=== PATIENT | female | born 2000 | race Caucasian/White ===

== ENCOUNTER 2020-12-11 21:55 | Emergency (ER) | payer BC ==
--- NOTE | 2020-12-11 22:40 | EDM.PDOC ---
ED HPI GENERAL MEDICAL PROBLEM - General Chief Complaint: Cardiovascular Problem Stated Complaint: HIGH HEART RATE Time Seen by Provider: 12/11/20 22:22 - History of Present Illness INITIAL COMMENTS - FREE TEXT/NARRATIVE: CHIEF COMPLAINT(S): I got an alert on my phone for high heart rate HISTORY OF PRESENT ILLNESS: This is a 20-year-old woman without any significant past medical history comes to the emergency department with a chief complaint of "I got an alert on my phone for a high heart rate." Patient states that prior to arrival she got an alert on her phone where her heart rate was greater than 100 for approximately 10 minutes. She states that she was sitting down at that time. She states that it was not decreasing so she decided to come to the emergency department. She states that this did happen in the past but it does not last long. She denies any chest pain, shortness of breath, diaphoresis, nausea or vomiting. She denies any fevers or chills, cough, runny nose or congestion. She denies any personal history of thyroid disease. She denies any family history of CAD, early onset at young age. She states that her mother does have thyroid issues. She states that she is currently on her period. She states that she does drink caffeine approximately 12 ounces of red bull per day. There are times where she does drink 3-4 red bowls. She denies any other symptoms. REVIEW OF SYSTEMS: Constitutional: Denies fever, chills. Eyes: Denies eye pain Ears, Nose, Mouth, & Throat: Denies earache Cardiovascular: Positive for increased heart rate denies chest pain Respiratory: Denies shortness of breath Gastrointestinal: Denies Nausea, vomiting, diarrhea, hematochezia. Genitourinary: Denies hematuria Skin:Denies a rash MSK: Denies joint pain Neurological: Denies blurred vision Psychiatric: Denies depression PAST MEDICAL HISTORY: As per history of present illness and as reviewed below otherwise noncontributory. SURGICAL HISTORY: As per history of present illness and as reviewed below otherwise noncontributory. LMP: Currently on her period SOCIAL HISTORY: As per history of present illness and as reviewed below otherwise noncontributory. FAMILY HISTORY: As per history of present illness and as reviewed below otherwise noncontributory. EXAMINATION OF ORGAN SYSTEMS/BODY AREAS: Constitutional: Blood pressure was 140/77, heart rate 106, respiratory rate 18 with an oxygen saturation 95% on room air. Temperature 37.0 General: Overall well-appearing young girl who is in no acute distress Psychiatric: Appropriate mood and affect. Eyes: No scleral icterus or conjunctival erythema ENMT: Moist mucous membranes. No pharyngeal erythema Cardiovascular: Regular, rate, and rhythm. No gallops, murmurs, or rubs. Bilateral upper extremity pulses symmetric and intact. No peripheral edema. No JVD. Respiratory: Lungs clear to auscultation bilaterally. No wheezes, rales, or rhonchi. Gastrointestinal: Soft, non-tender, non-distended. Normoactive bowel sounds Genitourinary: No suprapubic tenderness Musculoskeletal: Normal range of motion. Skin: No lesions or abrasions. Neurological: Alert, GCS 15 MEDICAL DECISION MAKING AND COURSE IN THE ED WITH INTERPRETATION/REVIEW OF DIAGNOSTIC STUDIES: This is a 20-year-old woman without any significant past medical history he does drink a significant out of caffeine who presents to the emergency department with a alert on her watch telling her that she had a high heart rate. Patient is currently tachycardic. We did obtain an EKG which did not reveal any acute signs of ischemia. There is no evidence of arrhythmia. The patient is currently asymptomatic. I do not believe any further work-up is indicated. I did discuss with her that we could place a Holter monitor on her and she can follow-up with cardiology given that this is happened in the past. She was amenable to this plan. Therefore given that is overnight she will come in tomorrow to have a Holter monitor placed. She will follow-up with cardiology in 14 days. She is to return for any new or worsening symptoms. She was amenable discharge at this time and had no further questions. Wells Criteria Clinical signs/symptoms of DVT: No (0) PE #1 Dx or equally likely: No (0) Heart Rate >100: Yes (1.5) Immobilization for 3 days or surgery in last month: No (0) Previously Dx PE or DVT: No (0) Hemoptysis: No (0) Malignancy w/ Tx within 6 months or palliative: No (0) Wells Score: 1.5 -> low risk no need for further workup DISPOSITION: The patient was discharged home in stable condition. The patient will follow up with cardiology in 14 days CONDITION: Fair PROCEDURES: None FINAL IMPRESSION(S)/DIAGNOSES: 1. Acute tachycardia likely secondary to caffeine use Kameron Riley M.D. - Related Data Allergies Allergy/AdvReac Type Severity Reaction Status Date / Time Sulfa (Sulfonamide Allergy Rash Verified 12/11/20 22:20 Antibiotics) Home Meds: Home Meds . [No Known Home Meds] 10/12/14 [History] Past Medical History - Past Health History Medical/Surgical History: Denies Medical/Surgical History HEENT History: Reports: None Cardiovascular History: Reports: None Respiratory History: Reports: None Gastrointestinal History: Reports: None Genitourinary History: Reports: None TAPPER BIT History: Reports: None Musculoskeletal History: Reports: None Neurological History: Reports: None Psychiatric History: Reports: None Endocrine/Metabolic History: Reports: None Hematologic History: Reports: None Immunologic History: Reports: None Oncologic (Cancer) History: Reports: None Dermatologic History: Reports: None - Infectious Disease History Infectious Disease History: Reports: None - Past Surgical History Head Surgeries/Procedures: Reports: None Social & Family History - Family History Family Medical History: No Pertinent Family History - Caffeine Use Caffeine Use: Reports: Energy Drinks ED ROS GENERAL - Review of Systems Review Of Systems: See Below ED EXAM, GENERAL - Physical Exam Exam: See Below Course - Vital Signs Last Recorded V/S: Last Vital Signs Temp 37.0 C 12/11/20 22:20 Pulse 88 12/11/20 23:14 Resp 18 12/11/20 23:14 BP 129/68 12/11/20 23:20 Pulse Ox 97 12/11/20 23:14 Departure - Departure Time of Disposition: 22:39 Disposition: Home, Self-Care 01 Condition: Fair Clinical Impression: Palpitations Instructions: Palpitations, [id number] Referrals: PCP,None [Primary Care Provider] - Arnol Bowie MD [Physician] - Forms: ED Department Discharge Additional Instructions: You were evaluated today on an emergent basis. At this time given that you were at the time of your alert on your watch we will place a Holter monitor on you and I would like you to follow-up with cardiology in 2 weeks. If you have any chest pain, shortness of breath, passing out I would like you to return to the emergency department. In addition your caffeine intake may be contributing to the tachycardia I do recommend that you limit your caffeine intake. [facility] [address] [place] [address] [facility] [address] [place] [address] The patient is informed of any results of their evaluation and diagnostic workup and all questions are answered. They are given discharge instructions and return precautions. The patient is stable for discharge. The patient states they understand and agree with the plan and that they will return if their symptoms get worse or if they have any new concerns. The following information is given to patients seen in the emergency department who are being discharged to home. This information is to outline your options for follow-up care. We provide all patients seen in our emergency department with a follow-up referral. The need for follow-up, as well as the timing and circumstances, are variable depending upon the specifics of your emergency department visit. If you don't have a primary care physician on staff, we will provide you with a referral. We always advise you to contact your personal physician following an emergency department visit to inform them of the circumstance of the visit and for follow-up with them and/or the need for any referrals to a consulting specialist. The emergency department will also refer you to a specialist when appropriate. This referral assures that you have the opportunity for follow-up care with a specialist. All of these measure are taken in an effort to provide you with optimal care, which includes your follow-up. Under all circumstances we always encourage you to contact your private physician who remains a resource for coordinating your care. When calling for follow-up care, please make the office aware that this follow-up is from your recent emergency room visit. If for any reason you are refused follow-up, please contact the [facility] Emergency Department at and asked to speak to the emergency department charge nurse. Sepsis Event Note (ED) - Evaluation Sepsis Screening Result: No Definite Risk
--- NOTE | 2020-12-12 06:01 | PCM.EKG ---
#1 Interpretation EKG Date: 12/11/20 Time: 22:23 Rhythm: NSR Rate (Beats/Min): 95 [place]: Normal P-Wave: Present QRS: Normal ST-T: Normal QT: Normal Comparison: NA - No Prior EKG EKG Interpretation Comments: SinuS Rhythm
== END 2020-12-11 23:21 | disposition home or self-care (01) ==
LOC: MW.ED 21:55
DX: R00.0 Tachycardia, unspecified (principal); R00.2 Palpitations; Z88.2 Allergy status to sulfonamides
CPT/HCPCS: 93005; 99283; 99284-25

== ENCOUNTER 2021-02-03 10:59 | Emergency (ER) | payer OTHER, BC ==
--- NOTE | 2021-02-03 11:25 | EDM.PDOC ---
ED HPI GENERAL MEDICAL PROBLEM - General Chief Complaint: Upper Extremity Injury/Pain Stated Complaint: DENISE LFT ARM Time Seen by Provider: 02/03/21 11:00 Source of Information: Reports: Patient History Limitations: Reports: No Limitations - History of Present Illness INITIAL COMMENTS - FREE TEXT/NARRATIVE: HISTORY AND PHYSICAL: History of present illness: Patient is a 20-year-old female resents emergency room today with concern of left elbow injury/pain that occurred just prior to travel to the emergency room. Patient states that she was at work walking through a warehouse when she had tripped on her feet and fell forward. Patient states that she caught herself with her hands and left elbow and was on her knees. Patient states that she did not hit her head or lose consciousness. Patient states that since the injury, she has not been able to move her left elbow due to pain. Patient denies any other associative injury or pain from the fall. Patient denies fever, chills, chest pain, shortness of breath, or cough. Denies headache, neck stiff ness, change in vision, syncope, or near syncope. Denies nausea, vomiting, abdominal pain, diarrhea, constipation, or dysuria. Has not noted any blood in urine or stool. Patient has been eating and drinking appropriately. Review of systems: As per history of present illness and below otherwise all systems reviewed and negative. Past medical history: As per history of present illness and as reviewed below otherwise noncontributory. Surgical history: As per history of present illness and as reviewed below otherwise noncontributory. Social history: See social history for further information Family history: As per history of present illness and as reviewed below otherwise noncontributory. Physical exam: General: Patient is alert, oriented, and in no acute distress. Patient sitting comfortably on exam table. Vitals stable and reviewed by me. HEENT: Atraumatic, normocephalic, pupils equal and reactive bilaterally, negative for conjunctival pallor or scleral icterus, mucous membranes moist, TMs normal bilaterally, throat clear, neck supple, nontender, trachea midline. No drooling or trismus noted. No meningeal signs. No hot potato voice noted. Lungs: Clear to auscultation, breath sounds equal bilaterally, chest nontender. Heart: S1S2, regular rate and rhythm without overt murmur Abdomen: Soft, nondistended, nontender. Negative for masses or hepatosplenomegaly. Negative for costovertebral tenderness. Pelvis: Stable nontender. Genitourinary: Deferred. Rectal: Deferred. Skin: Intact, warm, dry. No lesions or rashes noted. Extremities: The LUE elbow is moderately edematous without erythema / ecchymosis. Patient has limited range of motion of the left elbow due to pain but does have full range of motion of all digits, wrist and shoulder of the left upper extremity. Radial pulses grossly intact of the left upper extremity with capillary refill less than 2 seconds. All compartments are soft of the complete left upper extremity. Intact sensation to light and deep touch of the left upper extremity. Otherwise, atraumatic, negative for cords or calf pain. Neurovascular unremarkable. Neuro: Awake, alert, oriented. Cranial nerves II through XII unremarkable. Cerebellum unremarkable. Motor and sensory unremarkable throughout. Exam nonfocal. Notes: Discussed importance for follow-up with an orthopedic provider. Signs and symptoms that were prompt return to the ED thoroughly discussed with patient. Voices understanding and is agreeable to plan of care. Denies any further questions or concerns at this time. Diagnostics: Elbow x-ray, LT Therapeutics: Toradol, posterior long-arm with sling placed by nursing staff post splint neurovascular status intact Prescription: None Impression: Radial head fracture, left Plan: 1. Rest, ice, elevate the affected extremity. You can apply ice 15 minutes on, 15 minutes off. Keep the splint on until orthopedic evaluation. 2. Tylenol and/or Ibuprofen as directed for pain management or discomfort. 3. Follow up with the Orthopedic provider as discussed. The number has been provided above for you to call and establish an appointment time. Return to the ED as needed and as discussed. Definitive disposition and diagnosis as appropriate pending reevaluation and review of above. left elbow Pain Score (Numeric/FACES): 5 - Related Data Allergies Allergy/AdvReac Type Severity Reaction Status Date / Time Sulfa (Sulfonamide Allergy Rash Verified 02/03/21 11:11 Antibiotics) Home Meds: Home Meds . [No Known Home Meds] 10/12/14 [History] Past Medical History - Past Health History Medical/Surgical History: Denies Medical/Surgical History HEENT History: Reports: None Cardiovascular History: Reports: None Respiratory History: Reports: None Gastrointestinal History: Reports: None Genitourinary History: Reports: None GROUP PROGRAM MANAGER History: Reports: None Musculoskeletal History: Reports: None Neurological History: Reports: None Psychiatric History: Reports: None Endocrine/Metabolic History: Reports: None Hematologic History: Reports: None Immunologic History: Reports: None Oncologic (Cancer) History: Reports: None Dermatologic History: Reports: None - Infectious Disease History Infectious Disease History: Reports: None - Past Surgical History Head Surgeries/Procedures: Reports: None Other HEENT Surgeries/Procedures: tubes when younger Social & Family History - Family History Family Medical History: No Pertinent Family History - Tobacco Use Tobacco Use Status *Q: Never Tobacco User - Caffeine Use Caffeine Use: Reports: Energy Drinks - Recreational Drug Use Recreational Drug Use: No Review of Systems - Review of Systems Review Of Systems: Comprehensive ROS is negative, except as noted in HPI. ED EXAM, GENERAL - Physical Exam Exam: See Below (see dictation) Course - Vital Signs Last Recorded V/S: Last Vital Signs Temp 97.3 F 02/03/21 11:11 Pulse 80 02/03/21 11:11 Resp 15 02/03/21 11:11 BP 129/91 H 02/03/21 11:11 Pulse Ox 100 02/03/21 11:11 - Orders/Labs/Meds Orders: Active Orders 24 hr Category Date Time Status DME for Discharge [COMM] Stat Oth 02/03/21 12:05 Ordered Meds: Medications Discontinued Medications Generic Name Dose Route Start Last Admin Trade Name Freq PRN Reason Stop Dose Admin Ketorolac Tromethamine 60 mg 02/03/21 11:50 02/03/21 12:00 Ketorolac 60 Mg/2 Ml Sdv IM 02/03/21 11:51 60 mg ONETIME ONE Administration Departure - Departure Time of Disposition: 12:03 Disposition: Home, Self-Care 01 Clinical Impression: Radial head fracture, closed Qualifiers: Encounter type: initial encounter Fracture alignment: nondisplaced Laterality: left Qualified Code(s): S52.125A - Nondisplaced fracture of head of left radius, initial encounter for closed fracture - Discharge Information Instructions: Radial Head Fracture, [id number] Referrals: PCP,None [Primary Care Provider] - Forms: ED Department Discharge Additional Instructions: The following information is given to patients seen in the emergency department who are being discharged to home. This information is to outline your options for follow-up care. We provide all patients seen in our emergency department with a follow-up referral. The need for follow-up, as well as the timing and circumstances, are variable depending upon the specifics of your emergency department visit. If you don't have a primary care physician on staff, we will provide you with a referral. We always advise you to contact your personal physician following an emergency department visit to inform them of the circumstance of the visit and for follow-up with them and/or the need for any referrals to a consulting specialist. The emergency department will also refer you to a specialist when appropriate. This referral assures that you have the opportunity for follow-up care with a specialist. All of these measure are taken in an effort to provide you with optimal care, which includes your follow-up. Under all circumstances we always encourage you to contact your private physician who remains a resource for coordinating your care. When calling for follow-up care, please make the office aware that this follow-up is from your recent emergency room visit. If for any reason you are refused follow-up, please contact the [facility] Emergency Department at and asked to speak to the emergency department charge nurse. [facility] [address] [place] [address] [place] [phone] [facility] - Orthopedic [facility] Professional Building [address] [place] [address], [address] [place] [address] 1. Rest, ice, elevate the affected extremity. You can apply ice 15 minutes on, 15 minutes off. Keep the splint on until orthopedic evaluation. 2. Tylenol and/or Ibuprofen as directed for pain management or discomfort. 3. Follow up with the Orthopedic provider as discussed. The number has been provided above for you to call and establish an appointment time. Return to the ED as needed and as discussed. Sepsis Event Note (ED) - Evaluation Sepsis Screening Result: No Definite Risk - Focused Exam Vital Signs: Vital Signs Temp Pulse Resp BP Pulse Ox 02/03/21 11:11 97.3 F 80 15 129/91 H 100 - My Orders Last 24 Hours: My Active Orders 02/03/21 12:05 DME for Discharge [COMM] Stat - Assessment/Plan Last 24 Hours: My Active Orders 02/03/21 12:05 DME for Discharge [COMM] Stat
[2021-02-03] MEDS ORDERED: Ketorolac 60 MG/2 ML SDV IM ONE (11:50)
--- NOTE | 2021-02-03 12:00 | CR ---
Indication: Fall, injury. Technique: Left elbow 2 views. Comparison: Left elbow radiographs 10/12/2014. Findings: Suboptimal positioning on the AP view. An acute nondisplaced fracture of the radial head is suspected on the lateral view. No definite intra-articular extension. No dislocation. Interval skeletal maturation. Large elbow joint effusion. Soft tissues are unremarkable. Impression: 1. An acute nondisplaced fracture of the radial head is suspected. 2. Large elbow joint effusion. Dictated by Darling Dickens MD @ 02/03/2021 11:58:[address] Darling Dickens @ Feb 03 2021 11:58AM
== END 2021-02-03 12:58 | disposition home or self-care (01) ==
LOC: MW.ED 10:59
DX: S52.125A Nondisplaced fracture of head of left radius, initial encounter for closed fracture (principal); Z88.2 Allergy status to sulfonamides; W01.0XXA Fall on same level from slipping, tripping and stumbling without subsequent striking against object, initial encounter; Y93.01 Activity, walking, marching and hiking; Y92.89 Other specified places as the place of occurrence of the external cause; Y99.0 Civilian activity done for income or pay
CPT/HCPCS: 29105; 73070; 96372; 99283; J1885

== ENCOUNTER 2021-11-05 17:37 | Emergency (ER) | payer BC ==
[2021-11-05] MEDS ORDERED: Ondansetron 4 MG/2 ML SDV IVPUSH ONE (17:41)
[2021-11-05] MEDS ORDERED: Sodium Chloride 0.9% 1,000 ML IV ONE (17:41)
[2021-11-05 19:03] LABS: BLOOD UREA NITROGEN,BUN 15 mg/dL (7.0-18.0); CARBON DIOXIDE,CO2 24.9 mmol/L (21.0-32.0); CHLORIDE,CL 101 mmol/L (98-107); GLUCOSE RANDOM 106 mg/dL (74-106); LIPASE 103 U/L (73-393); POTASSIUM,K 3.5 mmol/L (3.5-5.1); SODIUM,NA 138 mmol/L (136-145)
[2021-11-05 19:42] LABS: CORONAVIRUS COVID-19 NAA NEGATIVE (NEGATIVE); INFLUENZA A NAA NEGATIVE (NEGATIVE); INFLUENZA B NAA NEGATIVE (NEGATIVE)
== END 2021-11-05 21:00 | disposition home or self-care (01) ==
LOC: MW.ED 17:37
DX: N39.0 Urinary tract infection, site not specified (principal); R11.2 Nausea with vomiting, unspecified; Z88.2 Allergy status to sulfonamides; Z20.822 Contact with and (suspected) exposure to COVID-19
CPT/HCPCS: 0240U; 36415; 80053; 81001; 81025; 83690; 85025; 87086; 96374; 99284; J2405; J7030; 99283

== ENCOUNTER 2021-12-05 21:30 | Emergency (ER) | payer BC ==
[2021-12-05] MEDS ORDERED: Ondansetron 4 MG Tab.DIS PO ONE (23:21)
[2021-12-05] MEDS ORDERED: Dextrose 5%-Lactated Ringers 1,000 ML IV SCH (23:45)
[2021-12-06] MEDS ORDERED: Famotidine 20 MG Tab PO ONE
[2021-12-06] MEDS ORDERED: Alum Hydro/Mag Hydro/Simeth XS 15 ML, Lidocaine 2% 5 ML PO ONE ×2
[2021-12-06 00:04] LABS: BLOOD UREA NITROGEN,BUN 8 mg/dL (7.0-18.0); CARBON DIOXIDE,CO2 25.7 mmol/L (21.0-32.0); CHLORIDE,CL 103 mmol/L (98-107); GLUCOSE RANDOM 98 mg/dL (74-106); LIPASE 94 U/L (73-393); POTASSIUM,K 3.9 mmol/L (3.5-5.1); SODIUM,NA 137 mmol/L (136-145)
[2021-12-06] MEDS ORDERED: Nitrofurantoin Monohydrate/Macrocrystalline 100 MG Cap PO ONE (01:43)
== END 2021-12-06 02:10 | disposition home or self-care (01) ==
LOC: MW.ED 21:30
DX: N39.0 Urinary tract infection, site not specified (principal); R11.2 Nausea with vomiting, unspecified; Z88.2 Allergy status to sulfonamides
CPT/HCPCS: 36415; 80053; 81001; 81025; 83690; 85025; 87086; 99284; A9270; J7121

== ENCOUNTER 2022-02-22 20:04 | Emergency (ER) | payer BC ==
[2022-02-22] MEDS ORDERED: Ibuprofen 600 MG Tab PO ONE (23:00)
== END 2022-02-22 23:10 | disposition home or self-care (01) ==
LOC: MW.ED 20:04
DX: S80.02XA Contusion of left knee, initial encounter (principal); Z88.2 Allergy status to sulfonamides; W22.8XXA Striking against or struck by other objects, initial encounter
CPT/HCPCS: 73562-26-LT; 73562-LT; 99283

== ENCOUNTER 2022-08-01 19:49 | Emergency (ER) | payer BC ==
[2022-08-01] MEDS ORDERED: Sodium Chloride 0.9% 1,000 ML IV ONE (19:55)
[2022-08-01] MEDS ORDERED: Ondansetron 4 MG/2 ML SDV IVPUSH ONE (20:17)
[2022-08-01 21:07] LABS: CARBON DIOXIDE,CO2 23.9 mmol/L (21.0-32.0); POTASSIUM,K 3.5 mmol/L (3.5-5.1)
[2022-08-01] MEDS ORDERED: Cephalexin 500 MG Cap PO ONE (21:13)
== END 2022-08-01 21:51 | disposition home or self-care (01) ==
LOC: MW.ED 19:49
DX: O23.40 Unspecified infection of urinary tract in pregnancy, unspecified trimester (principal); N39.0 Urinary tract infection, site not specified; O21.9 Vomiting of pregnancy, unspecified; Z88.2 Allergy status to sulfonamides
CPT/HCPCS: 36415; 80053; 81001; 84702; 85025; 87086; 96361; 96374; 99284; A9270; J2405; J7030

== ENCOUNTER 2023-02-26 21:42 | Inpatient (IN) | payer BC ==
[2023-02-27] MEDS ORDERED: Sodium Chloride 0.9% 20 ML SDV IV PRN (01:23)
[2023-02-27] MEDS ORDERED: Lidocaine 1% 50 ML MDV INJECT PRN (01:23)
[2023-02-27] MEDS ORDERED: Terbutaline 1 MG/ML SDV SUBCUT PRN (01:23)
[2023-02-27] MEDS ORDERED: Nalbuphine HCl 10 MG/ 1ML Amp IVPUSH PRN (01:23)
[2023-02-27] MEDS ORDERED: Ondansetron 4 MG/2 ML SDV IVPUSH PRN (01:23)
[2023-02-27] MEDS ORDERED: Misoprostol 200 MCG Tab PO PRN (01:23)
[2023-02-27] MEDS ORDERED: Carboprost Tromethamine 250 MCG/1 mL Vial IM PRN (01:23)
[2023-02-27] MEDS ORDERED: Sodium Chloride 0.9% 10 ML Syringe FLUSH PRN (01:23)
[2023-02-27] MEDS ORDERED: Methylergonovine 0.2 MG/1 ML Amp IM PRN (01:23)
[2023-02-27] MEDS ORDERED: Water For Irrigation,Sterile 1,000 ML Container IRR PRN (01:23)
[2023-02-27] MEDS ORDERED: Tranexamic Acid 1,000 MG in Sodium Chloride 0.9% 100 ML IV PRN (01:23)
[2023-02-27] MEDS ORDERED: Sodium Chloride 0.9% 2.5 ML Syringe FLUSH PRN (01:23)
[2023-02-27] MEDS ORDERED: Oxytocin/0.9 % Sodium Chloride 30 UNIT/500 ML BAG IV SCH ×2 (01:30)
[2023-02-27 01:38] LABS: HEMATOCRIT 36.5 % (36.0-46.0); HEMOGLOBIN 12.4 g/dL (12.0-16.0); MEAN CORPUSCULAR HEMOGLOBIN 29.7 pg (27.0-32.0); MEAN CORPUSCULAR VOLUME 87.5 fL (80.0-98.0); MEAN PLATELET VOLUME 10.7 fL (7.40-12.00); RED BLOOD CELL COUNT 4.17 M/uL (4.30-5.90); WHITE BLOOD CELL COUNT,WBC 9.71 K/uL (4.0-11.0)
[2023-02-27] MEDS: Lactated Ringers 1,000 ML IV SCH ×4 (04:00→20:42)
[2023-02-27] MEDS ORDERED: Bupivacaine 0.5% 10 ML SDV ONE (04:12)
[2023-02-27] MEDS ORDERED: Ropivacaine/PF 400 MG/200 ML PCA ONE (04:12)
[2023-02-27] MEDS ORDERED: Phenylephrine HCl 0.5 MG/5 ML AMP IVPUSH PRN (04:41)
[2023-02-27] MEDS ORDERED: ePHEDrine 50 MG/ML SDV IVPUSH PRN ×2 (04:41)
[2023-02-27] MEDS ORDERED: Ropivacaine HCl/PF 400 MG in Premix Bag 1 BAG EPIDUR SCH (04:45)
[2023-02-27] MEDS ORDERED: Acetaminophen 325 MG Tab PO ONE (14:28)
[2023-02-27] MEDS ORDERED: Acetaminophen 500 MG Tab PO ONE (20:25)
[2023-02-27] MEDS: Ampicillin 2 GM in Sodium Chloride 0.9% 100 ML IV SCH (20:43)
[2023-02-27] MEDS ORDERED: Lanolin 100% Cream 7 GM Tube TOP PRN (23:31)
[2023-02-27] MEDS ORDERED: Witch Hazel Medicated Pads 40/Jar TOP PRN (23:31)
[2023-02-27] MEDS ORDERED: Bisacodyl 10 MG Supp RECTAL PRN (23:31)
[2023-02-27] MEDS ORDERED: Ibuprofen 800 MG Tab PO PRN (23:31)
[2023-02-27] MEDS ORDERED: Benzocaine/Menthol 20%-0.5% Spray 78 GM Cannister TOP PRN (23:31)
[2023-02-27] MEDS ORDERED: Acetaminophen 500 MG Tab PO PRN (23:31)
[2023-02-27] MEDS ORDERED: Docusate Sodium 100 MG Cap PO PRN (23:31)
[2023-02-27] MEDS ORDERED: Ibuprofen 400 MG Tab PO PRN (23:31)
[2023-02-28] MEDS: Acetaminophen 500 MG Tab PO PRN ×2 (01:49→18:20)
[2023-02-28] MEDS: Ampicillin 2 GM in Sodium Chloride 0.9% 100 ML IV SCH ×4 (03:00→20:34)
[2023-02-28 06:07] LABS: HEMATOCRIT 33.7 % (36.0-46.0); HEMOGLOBIN 11.3 g/dL (12.0-16.0)
[2023-02-28] MEDS ORDERED: diphenhydrAMINE 50 MG/ML SDV IM ONE (21:20)
== END 2023-03-01 11:10 | disposition home or self-care (01) | DRG 560 ==
LOC: MW.OB 21:42 → MW.OBCHECK 21:42 → MW.OB 02-27 01:24 → OBSVTOIN 02-27 23:15 → MW.OB 02-28 02:30
PROVIDERS: ADMIT Obstetrics & Gynecology Obstetrics; ATTEND Obstetrics & Gynecology Obstetrics
PROC: 10E0XZZ Delivery of Products of Conception, External Approach (ICD-10-PCS; principal; 2023-02-27)
PROC: 3E0R3BZ Introduction of Anesthetic Agent into Spinal Canal, Percutaneous Approach (ICD-10-PCS; 2023-02-27)
PROC: 00HU33Z Insertion of Infusion Device into Spinal Canal, Percutaneous Approach (ICD-10-PCS; 2023-02-27)
DX: O42.12 Full-term premature rupture of membranes, onset of labor more than 24 hours following rupture (principal); O41.1230 Chorioamnionitis, third trimester, not applicable or unspecified; Z37.0 Single live birth; Z3A.37 37 weeks gestation of pregnancy
CPT/HCPCS: 01967; 36415; 51702; 59025; 59409; 84112; 85014; 85018; 85027; 86592; 86850; 86900; 86901; A9270-GY; J0290; J1200; J1580; J2590; J2795; J3490; J7120